=== PATIENT | male | born 1960 | race Caucasian/White ===

== ENCOUNTER → 2017-11-12 | Outpatient (CLI) | payer OTHER ==
[~2017-11-12] MED LIST: ASPI-1471 PO; ATOR20TA22 PO; METO50TA19 PO; [UNRECOGNIZED DRUG - CODE] PO
--- NOTE | 2017-11-12 16:54 | EKG ---
FACILITY: [facility] PATIENT NAME: PAULA ISAAC : [id number] MR: [id number] V: [id number] EXAM DATE: ORDERING PHYSICIAN: KEVEN LOZANO TECHNOLOGIST: DEANNA Test Reason : CORONARY DISEASE Blood Pressure : / mmHG Vent. Rate : 071 BPM Atrial Rate : 071 BPM P-R Int : 160 ms QRS Dur : 086 ms QT Int : 370 ms P-R-T Axes : 033 033 055 degrees QTc Int : 402 ms Normal sinus rhythm Normal ECG No previous ECGs available Confirmed by SAV JENKINS ([id number]) on 11/12/2017 7:19:25 PM Referred By: BLAKE Confirmed By:SAV JENKINS
== END ==
LOC: RESP 16:19
PROVIDERS: ATTEND Family Medicine
DX: I25.10 Atherosclerotic heart disease of native coronary artery without angina pectoris (principal)
CPT/HCPCS: 93005

== ENCOUNTER 2017-12-03 00:11 | Day surgery (SDC) | payer OTHER ==
[~2017-12-03] VITALS: Ht 177.8 cm; Wt 82.6 kg
[~2017-12-03 00:11] MED LIST changes: +ATOR-1 PO; +CAND1TAB PO; +CAND32TA; +LACT1CAP4 PO; +METF-411 PO; +METO25TA23 PO; +ROSU20TA5 PO; +THYR15TA6 PO; +THYR30TA21 PO
[2017-12-03 09:00] VITALS: BP 103/79
[2017-12-03] MEDS ORDERED: PROPOFOL EMUL(*) 10MG/ML 20 ML 40 ML ONE (09:10)
[2017-12-03] MEDS ORDERED: NORMOSOL R SOLN(*) 1000 ML BAG 1,000 ML IV PRN (09:50)
[2017-12-03] MEDS ORDERED: LIDOCAINE/SOD BICARB 8.4% SYR ID ONE (09:50)
[2017-12-03] MEDS ORDERED: PROPOFOL EMUL(*) 10MG/ML 20 ML 20 ML ONE (11:07)
[2017-12-03 11:29] VITALS: BP 83/52
--- NOTE | 2017-12-03 11:42 | Short(Outpt) Discharge Summary ---
Discharge Summary Reason for Hosp/Final Diag: (1) Colon cancer screening Status: Chronic Hospital Course & Plan: Colonoscopy with polypectomy x4 completed without problems. Departure Discharge to: Home, Self Care Discharge Instructions Home Meds Reported Medications Lactobacillus Acidophilus (PROBIOTIC) 1 Each Capsule, 1 EACH PO DAILY, CAPSULE 11/26/17 Metformin Hcl (METFORMIN HCL) 500 Mg Tablet, 1 TAB PO QDAY, TAB 11/26/17 Rosuvastatin Calcium (Rosuvastatin Calcium) 20 Mg Tablet, 1 TAB PO DAILY 11/26/17 Candesartan/Hydrochlorothiazid (CANDESARTAN-HCTZ 32-25 MG TAB) 1 Each Tablet, 1 EACH PO DAILY 11/26/17 Thyroid,Pork (ARMOUR THYROID) 30 Mg Tablet, 30 MG PO DAILY 11/26/17 Metoprolol Succinate (METOPROLOL SUCCINATE) 25 Mg Tab.er.24h, 1 TAB PO QDAY, TAB 11/18/17 Aspirin (ASPIR 81) 81 Mg Tablet.dr, 2 TAB PO QDAY, TAB 04/04/15 Discontinued Reported Medications Thyroid,Pork (ARMOUR THYROID) Unknown Strength Tablet, PO 11/18/17 Atorvastatin Calcium (ATORVASTATIN CALCIUM) 80 Mg Tablet, 1 TAB PO QDAY, TAB 11/18/17 Candesartan Cilexetil (CANDESARTAN CILEXETIL) 32 Mg Tablet, 30 DAILY 11/18/17 Diet: Regular Activity: As Tolerated Special Instructions: Your colonoscopy was completed without any problems and your prep was excellent (Good Job!!). I removed 4 small polyps from your colon and they were sent to pathology. My office will call you in the next week or so and let you know what the polyps are and when your next colonoscopy should be (in 3, 5, or 10 years) depending on if any, some, or all of the polyps are precancerous. ALYSON OTT MD Dec 03, 2017 11:42
[2017-12-03 11:45] VITALS: BP 89/55
[2017-12-03 12:00] VITALS: BP 102/69
[2017-12-03 12:12] VITALS: BP 99/75
[2017-12-03 12:13] VITALS: BP 114/82
== END 2017-12-03 12:30 | disposition home or self-care (01) ==
LOC: OR 00:11
PROVIDERS: ATTEND Surgery
DX: Z12.11 Encounter for screening for malignant neoplasm of colon (principal); D12.4 Benign neoplasm of descending colon; K63.5 Polyp of colon; E11.9 Type 2 diabetes mellitus without complications
CPT/HCPCS: 00811; 36416; 45385; 82948; 88305; J2704

== ENCOUNTER → 2017-12-16 | Outpatient (CLI) | payer OTHER | LOC: LAB 12-12 16:28 | PROVIDERS: ATTEND Internal Medicine Cardiovascular Disease | DX: I25.10 Atherosclerotic heart disease of native coronary artery without angina pectoris (principal) | CPT/HCPCS: 36415; 82465; 83718; 84478 ==

== ENCOUNTER → 2017-12-25 | Outpatient (CLI) | payer OTHER ==
--- NOTE | 2017-12-25 13:49 | RADIOLOGY IMAGING REPORT ---
FACILITY: [facility] [place] PATIENT NAME: Juan Vo : 1960 MR: [id number] V: [id number] EXAM DATE: [id number] ORDERING PHYSICIAN: JAY CARDENAS TECHNOLOGIST: Location: [facility] Patient: Juan Vo : 1960 Visit/Account:[id number] Date of Sevice: 12/25/2017 EXAMINATION: Single Isotope SPECT Imaging with Exercise and Gated SPECT Imaging DATE OF EXAMINATION: 12/25/2017 DATE OF INTERPRETATION: 12/25/2017 REQUESTING PHYSICIAN: JAY CARDENAS INDICATION: The patient is a 57-year-old male evaluated for coronary disease. PROCEDURE: After informed consent the patient received an intravenous injection of 12.9 mCi of Tc-9 9m sestamibi followed at the appropriate time interval by rest imaging. The patient then exercised a ccording to the standard Humberto protocol for 6 minutes achieving 7 METS. Resting heart rate was 71 bp m with a peak heart rate of 148 bpm which is 90 % of maximal predicted heart rate for age. Blood pr essure at rest was 122 / 67; blood pressure during exercise was 158 / 71. There was no chest pain du ring exercise. Exercise was discontinued because of shortness of breath. Baseline EKG demonstrates sinus rhythm. There were no EKG changes of ischemia at peak exercise. Approximately one minute and 30 seconds prior to the termination of exercise, the patient received an intravenous injection of 30. 2 mCi of Tc-99m sestamibi followed by stress imaging. RAW DATA: Examination of the summed raw data revealed a good quality study. MYOCARDIAL PERFUSION: The tomographic images demonstrate normal myocardial perfusion with no evidenc e of infarct or ischemia. There is no TID. GATED IMAGES: The gated images demonstrate normal ejection fraction 59% with normal wall motion and thickening IMPRESSION: 1. Normal exercise ECG 2. Normal myocardial perfusion scan. 3. Normal LV systolic function; LVEF 59%. 4. Based on the results of this exam, the patient appears to be at low risk for future cardiovascular events in the short-term, but at intermediate risk longer because of known coronary disease. Report Dictated By: Ramin Jimenez at 12/25/2017 1:42 PM Report E-Signed By: Ramin Jimenez at 12/25/2017 1:46 PM WSN:[id number]
--- NOTE | 2017-12-25 16:14 | RT STRESS TEST REPORT ---
FACILITY: [facility] [place] PATIENT NAME: PAULA ISAAC : [id number] MR: [id number] V: [id number] EXAM DATE: ORDERING PHYSICIAN: JAY CARDENAS TECHNOLOGIST: Emily Acquisition Time: 2017-12-25 09:29:24 Total Exercise Time: 00:05:58 Test Indications: Screening for CAD Medications: SEE NUCLEAR MED SHEET Protocol: JACOB 2 Max HR: 148 BPM 90% of Pred: 163 BPM Max BP: 158/071 mmHG Max Work Load: 7.0 METS Impression Normal EKG part of stress test Nuclear medicine report to follow seperately. Confirmed by ANAHY FIERRO ([id number]) on 12/25/2017 4:15:21 PM Referred By: Overread By: ANAHY FIERRO
== END ==
LOC: NUC 01:07
PROVIDERS: ATTEND Internal Medicine Cardiovascular Disease
DX: I25.10 Atherosclerotic heart disease of native coronary artery without angina pectoris (principal)
CPT/HCPCS: 78452; 93017; A9500